=== PATIENT | female | born 1965 | race Caucasian/White ===

== ENCOUNTER → 2022-09-04 | Outpatient (REF) | payer OTHER | LOC: M PLALAB 14:30 | PROVIDERS: ATTEND Nurse Practitioner Family | DX: Z12.4 Encounter for screening for malignant neoplasm of cervix (principal) | CPT/HCPCS: 87624; G0123 ==

== ENCOUNTER → 2022-09-04 | Outpatient (CLI) | payer OTHER | LOC: M WHC 12:45 | PROVIDERS: ATTEND Nurse Practitioner Family | DX: Z12.31 Encounter for screening mammogram for malignant neoplasm of breast (principal) ==

== ENCOUNTER → 2023-03-22 | Outpatient (CLI) | payer OTHER | LOC: M WHC 10:30 | PROVIDERS: ATTEND Nurse Practitioner Family | DX: Z13.820 Encounter for screening for osteoporosis (principal) ==

== ENCOUNTER → 2024-02-26 | Outpatient (CLI) | payer OTHER ==
[2024-02-26 14:14] LABS: BASO % 0.8 % (0.0-1.0); EOS # 0.1 10^3/uL (0.0-0.5); EOS % 1.7 % (0.0-3.0); HEMATOCRIT 47.1 % (36.0-47.0); HEMOGLOBIN 15.6 g/dl (12.0-15.5); LYMPH # 1.9 10^3/uL (1.5-5.0); LYMPH % 36.1 % (24.0-44.0); MEAN CORPUSCULAR HEMOGLOBIN 30.5 pg (27.0-33.0); MEAN CORPUSCULAR HGB CONC 33.1 g/dl (32.0-36.5); MONO # 0.4 10^3/uL (0.0-0.8); MONO % 8.2 % (2.0-8.0); NEUTROPHILS # 2.8 10^3/uL (1.5-8.5); PLATELET COUNT, AUTOMATED 294 10^3/uL (150-450); RED BLOOD COUNT 5.12 10^6/uL (4.00-5.40); WHITE BLOOD COUNT 5.3 10^3/uL (4.0-10.0)
[2024-02-26 14:23] LABS: ERYTHROCYTE SEDIMENTATION RATE 11 mm/hr (0-30)
[2024-02-26 14:52] LABS: RHEUMATOID FACTOR QUANT < 3.5 IU/ML (<14); URIC ACID 5.4 MG/DL (3.1-7.8)
[2024-02-26 14:56] LABS: ALBUMIN 4.2 G/DL (3.2-5.2); ALKALINE PHOSPHATASE 86 U/L (46-116); ALT/SGPT 17 U/L (7.0-40); AST/SGOT 10 U/L (<34); BILIRUBIN,TOTAL 0.7 MG/DL (0.3-1.2); BLOOD UREA NITROGEN 19 MG/DL (9-23); CALCIUM LEVEL 9.7 MG/DL (8.5-10.1); CARBON DIOXIDE LEVEL 27 MMOL/L (20-31); CHLORIDE LEVEL 107 MMOL/L (98-107); CHOLESTEROL LEVEL 223 MG/DL (<200); CHOLESTEROL RISK RATIO 4.03 (<5); FREE T4 1.32 NG/DL (0.89-1.76); GLOMERULAR FILTRATION RATE > 60.0 (>51); GLUCOSE, FASTING 95 MG/DL (60-100); HDL CHOLESTEROL 55.2 MG/DL (>40); LDL CHOLESTEROL 142.4 MG/DL (<100); NON-HDL-C 167.8 MG/DL; POTASSIUM SERUM 4.6 MMOL/L (3.5-5.1); SODIUM LEVEL 138 MMOL/L (136-145); THYROID STIMULATING HORMONE 1.454 uIU/ML (0.55-4.78); TOTAL PROTEIN 7.5 G/DL (5.7-8.2); TRIGLYCERIDES LEVEL 127 MG/DL (<150)
[2024-02-27 15:45] LABS: CYCLIC CITRULLINATED PEPTIDE < 16 UNITS (<20)
[2024-02-27 15:47] LABS: ANA PATTERN Nuclear, Homogeneous (NEGATIVE); ANA PATTERN 2 Nuclear, Speckled; ANA SCREEN, IFA POSITIVE (NEGATIVE); ANA TITER 1:40 titer (<1:40); ANA TITER 2 1:40 titer (NEGATIVE)
== END ==
LOC: M PLALAB 11:43
PROVIDERS: ATTEND Family Medicine
DX: R79.89 Other specified abnormal findings of blood chemistry (principal); M25.60 Stiffness of unspecified joint, not elsewhere classified; Z76.89 Persons encountering health services in other specified circumstances; Z82.61 Family history of arthritis

== ENCOUNTER → 2024-03-10 | Outpatient (CLI) | payer OTHER | LOC: M CLY 09:27 | PROVIDERS: ATTEND Family Medicine | DX: M79.641 Pain in right hand (principal) ==

== ENCOUNTER → 2024-03-26 | Outpatient (CLI) | payer OTHER ==
[~2024-03-26] MED LIST: E-Z-GAS II EFFERVESCENT PACKET (SODIUM BICARB./CITRIC ACID/SIMETHICONE) As Ordered ONE; E-Z-HD 98% w/w 340GM SUSP BTL As Ordered ONE; E-Z-PAQUE 96% w/w SUSP 176GM BTL As Ordered ONE
== END ==
LOC: M RAD 09:42
PROVIDERS: ATTEND Family Medicine
DX: R13.10 Dysphagia, unspecified (principal); K44.9 Diaphragmatic hernia without obstruction or gangrene